=== PATIENT | female | born 1950 | race Caucasian/White ===

== ENCOUNTER 2022-07-15 10:21 | Outpatient (CLI) | payer MEDICARE, OTHER ==
[2022-07-15 12:40] VITALS: BP 126/70
--- NOTE | 2022-07-15 12:40 | SLEEP CARE CONSULTATION ---
Information from patient questionnaire entered by Júnior Martínez. I have reviewed and concur with the information entered by Júnior Martínez. This document represents the service I personally performed and the decisions made by me, Kelly Eugene MD, [facility]. History of Present Illness Service Date and Time: 07/15/2022 1021 Reason for Visit: New patient Chief Complaint: reports: Other (UPDATE SUPPLIES) Usual bedtime: 8PM Time it takes to fall asleep: 5MIN Snores at night: No Observed to quit breathing while asleep: No Sleeps alone due to snoring: No Number of times waking at night: 3-4 Reasons for waking at night: reports: Other (UNKNOWN) Toss, Turn, or Twitch while sleeping: No Recalls having dreams: Yes Usually gets out of bed at: 630AM Feels refreshed in the morning: No Morning headache: No Sleepy or fatigued during the day: Yes Ever fallen asleep while driving: Yes Takes day naps: No Dreams during day naps: No Prior sleep studies: Yes Year and Where: [facility] Additional HPI information: I had the pleasure of seeing Mrs. Baez along with her Josue today regarding obstructive sleep apnea-hypopnea. As you know, she is a 71-year-old lady who was diagnosed with the sleep-disordered breathing at the [facility] about 15 years ago. The sleep study report is not available. She recalls the AHI to be around 90. She has been on the CPAP therapy since. After the [facility] closed, she went to [facility] in [place], which also closed recently. She has recently acquired a ResMed AirSense 11 from [employer]. She wears nasal pillows. He device is set at 5 15 cmH2O. She uses every night and all night. The compliance data show usage in 30 out of the past 30 nights, averaging 11.3 hours a night. The residual AHI is 2.9 and average air leak is 2.4 L/minute. She finds the treatment very beneficial. - Parasomnia Symptoms Ever been unable to move upon waking from sleep: No Walks in sleep: No Talks in sleep: No Ever acted out dreams in sleep: No Ever felt weak in the knees when startled or emotional: No Bothered by creepy, crawly, restless sensations in legs: No Problems with memory or concentration: Yes Subjective Initial [place] Sleepiness Scale score: 5 (07/06/22) Past Medical History Past Medical History: reports: Claustrophobia, Arthritis, Asthma, Other (MULTIPLE MYELOMA, PINCH NERVE ) Social History The patient's occupation is a RE. Patient is and lives in [place]. Have you smoked in the past 12 months: No Alcohol use: No Caffeine use: Yes Caffeine amount and frequency: 60OZ DAILY Family History Family history of sleep disordered breathing: No Allergies and Home Medications Known drug allergies: Yes (SEE ATTACHED) Drug allergies reviewed: Yes Home medication list reviewed: Yes Review of Systems Cardiovascular: reports: high blood pressure, irregular heart rate or pulse Respiratory: reports: shortness of breath Gastrointestinal: denies: heartburn, difficulty swallowing, nausea, vomitting, diarrhea, abdominal pain, other Urinary: reports: incontinence Neurological: reports: gait or balance problems Psychiatric: reports: claustrophobia Ear/Nose/Throat: denies: nasal congestion, sinus problems, nose bleeds, dry mouth/throat, hoarseness, injury to nose, tonsillectomy, wisdom teeth removed, other Endocrine: denies: thyroid disease, history of goiter, sluggishness, too hot or cold, excessive thirst, increased appetite, increased urination, unexplained weakness, other Musculoskeletal: reports: joint pain, back pain Immunologic: reports: sneezing, itching Physical Exam Vital signs obtained and entered by: JÚNIOR Hanna MA Blood Pressure: 126/70 (RIGHT ARM) Cuff size: long Heart Rate: 98 O2 Saturation: 60 Height: 5 ft 4 in Weight: 217 lb 3.2 oz Body Mass Index: 37.3 BMI Classification: Obese Neck circumference: 17.5 Mood/affect: normal HEENT: No craniofacial malformation Nostrils: patent to airflow Turbinates: normal Septum: midline Mouth and throat: narrow oropharynx Soft palate: long Hard palate: normal Uvula visualization: 25% Mallampati Class III Tongue: normal in size Tonsils: small Chin and jaw: normal size and position Neck: normal w/o lymphadenopathy or thyromegaly Heart: regular rate and rhythm Lungs: clear bilaterally Extremities: no edema or clubbing Neurologic: intact Impression and Plan IMPRESSION: 1. Obstructive Sleep Apnea-Hypopnea Syndrome, as previously diagnosed. The severity is unknown. The patient has excellent treatment compliance. The current pressure setting appears effective and comfortable. Narrow oropharynx and obesity are common predisposing factors for obstructive sleep apnea-hypopnea syndrome. No adjustment is necessary today. The patient does need a new prescription for CPAP supplies. In order to issue her a prescription, I will need a new sleep study to document the sleep-related breathing disorder and its severity. Plan: 1. Schedule an in-laboratory polysomnography. 2. Continue with autoCPAP set at 5 15 cmH2O. 3. Try to lose weight. 4. Return for follow up after the sleep study. Counseling Topics: Weight control Plan: in-lab polysomnography Visit Type: In Office Time Spent with Patient (minutes): 15 Provider Statement: I spent 100% of the Face to Face Visit with the patient with greater than 50% spent counseling the patient and coordination of care.
== END 2022-07-15 10:22 | disposition home or self-care (01) ==
LOC: SC 10:21
PROVIDERS: ATTEND Internal Medicine Pulmonary Disease
DX: G47.33 Obstructive sleep apnea (adult) (pediatric) (principal); E66.9 Obesity, unspecified; Z68.37 Body mass index [BMI] 37.0-37.9, adult
CPT/HCPCS: 99202; G0463; 99212

== ENCOUNTER 2022-07-30 20:48 | Outpatient (CLI) | payer MEDICARE, OTHER | END 2022-07-30 20:49 | disposition home or self-care (01) | LOC: SC 20:48 | PROVIDERS: ATTEND Internal Medicine Pulmonary Disease | DX: G47.33 Obstructive sleep apnea (adult) (pediatric) (principal) | CPT/HCPCS: 95810 ==

== ENCOUNTER 2022-08-30 10:00 | Outpatient (CLI) | payer MEDICARE, OTHER ==
--- NOTE | 2022-08-30 10:53 | Sleep Patient Instructions ---
Sleep Center Visit Summary - Patient Visit Information Reason for Visit: Sleep study follow up with patient who is currently on a CPAP - Patient Instructions Additional Instructions: You will be continued on CPAP therapy with pressure setting at 5-15 cmH2O. You may call the office with any concerns about pressure feeling too low or too much for adjustment, if needed. A prescription will be sent to [facility] for your supplies. You should contact DME suppliers for any questions or concerns about mask or equipment. Please follow up in the sleep care office in 1 year. - Clinic Information Contact: [facility] [address] [place] [address] [email or web address] T: [phone]
--- NOTE | 2022-08-30 10:55 | SLEEP CARE CONSULTATION ---
Information from patient questionnaire entered by Gabriela Martínez. I have reviewed and concur with the information entered by Gabriela Martínez. This document represents the service I personally performed and the decisions made by , Malini He ARNP. History of Present Illness Service Date and Time: 08/30/2022 1000 Initial [place] Sleepiness Scale score: 5 (07/06/22) Current [place] Sleepiness Scale score: 4 (08/30/22) Additional HPI information: DEBBI OLIVER returns for follow up and results of the recently performed polysomnography. Her sleep study showed severe obstructive sleep apnea with an AHI of 44.7. She wishes to continue with nasal autoCPAP set at 5-15 cmH20. Patient does not drink alcohol. Patient was cautioned about risks of drowsy driving until sleepiness symptoms resolve. Sleep Study - Results Type of Sleep Study: Polysomnography (COMPLETED 07/30/22) Prior sleep studies: Yes Year and Where: [facility] Sleep Study results: IMPRESSION: The quality of the study is good. The patient had reduced sleep efficiency due to sleep onset insomnia and a prolonged awakening in the second half of the study. The sleep architecture was abnormal for sleep fragmentation and lack of REM and slow wave sleep (N3). Respiratory monitoring showed severe obstructive sleep apnea-hypopnea (AHI = 44.7) associated with frequent arousals, oxyhemoglobin desaturation and mild hypoxia (jose oxygen saturation of 87%). The patient only slept supine during this study (supine AHI = 44.7; non-supine = 0.00). Snore was moderate to loud in intensity. There was no significant periodic leg movement of sleep. Cardiac rhythm was normal sinus rhythm without significant arrhythmia. No abnormal behavior (parasomnia) observed during the night. Allergies and Home Medications Known drug allergies: No Drug allergies reviewed: Yes Home medication list reviewed: Yes (no changes) Allergy and home medication list: Allergies No Known Drug Allergies Allergy (Verified 08/29/22 11:01) Review of Systems Review of systems same as previous: Yes (no changes) Physical Exam Vital signs obtained and entered by: GABRIELA Hanna MA Blood Pressure: 102/58 (RIGHT ARM) Cuff size: long Heart Rate: 56 O2 Saturation: 97 Height: 5 ft 4 in Weight: 212 lb Body Mass Index: 36.3 BMI Classification: Obese Impression and Plan 1. Obstructive Sleep Apnea-Hypopnea Syndrome, severe, with lowest oxygen saturation of 87%. Patient returns to office after completing verifying sleep study. The patient will be continued on nasal autoCPAP therapy with pressure set at 5-15 cmH2O. Patient's apnea severity and rationale for treatment to reduce apnea, improve sleep quality and reduce cardiovascular and cerebrovascular events was reviewed. I also reviewed the benefit of consistent device use of CPAP for asthma. 2. Obesity, unspecified. Currently patients BMI is 36.3. Obesity increases the risk of apnea, CPAP pressure requirements and overall health risks especially cardiovascular and diabetes. Thus patient is advised to lose weight. * Continue auto CPAP pressure at 5-15 cmH2O * Update supplies * Notify me if snoring with mask or feeling that the pressure is too much or too little * Attempt to lose weight * Call this office if any problems using CPAP * Return for follow up in 1 year, or sooner if concerns arise Counseling Topics: Spare mask, Weight loss health impact Visit Type: In Office Time Spent with Patient (minutes): 20 Provider Statement: I spent 100% of the Face to Face Visit with the patient with greater than 50% spent counseling the patient and coordination of care.
[2022-08-30 10:57] VITALS: BP 102/58
== END 2022-08-30 10:01 | disposition home or self-care (01) ==
LOC: SC 10:00
PROVIDERS: ATTEND Nurse Practitioner Family
DX: G47.33 Obstructive sleep apnea (adult) (pediatric) (principal); E66.9 Obesity, unspecified; Z68.36 Body mass index [BMI] 36.0-36.9, adult
CPT/HCPCS: 99213; G0463; 99212

== ENCOUNTER 2023-09-02 09:38 | Outpatient (CLI) | payer MEDICARE, OTHER ==
--- NOTE | 2023-09-02 10:21 | Sleep Patient Instructions ---
Sleep Center Visit Summary - Patient Visit Information Reason for Visit: Annual followup - Patient Instructions Additional Instructions: You will continue with CPAP therapy with pressure set at 5-15 cmH2O. A supply prescription will be updated with your DME. We encourage you to continue to try to lose weight. Please follow up with the sleep care office in 1 year. - Clinic Information Contact: [facility] [address] [place] [address] [email or web address] T: [phone]
--- NOTE | 2023-09-02 10:23 | SLEEP CARE CONSULTATION ---
Information from patient questionnaire entered by Gabriela Martínez. I have reviewed and concur with the information entered by Gabriela Martínez. This document represents the service I personally performed and the decisions made by , Malini He ARNP. History of Present Illness Service Date and Time: 09/02/2023 09 Previous diagnosis: Severe, Obstructive Sleep Apnea-Hypopnea Syndrome AHI: 44.7 (07/30/22) Reason for follow up: annual (LAST SEEN 08/2022) Equipment type: CPAP ([employer] Airsense 11, 01/08/2021) Equipment obtained from: Other ([facility], getting supplies) Mask style: Nasal Backup mask available: Yes Last cushion change: 1 month Prior sleep studies: Yes Year and Where: [facility] Type of Sleep Study: Polysomnography (COMPLETED 07/30/22) HPI additional information: DEBBI OLIVER was diagnosed to have severe, AHI 44.7, obstructive sleep apnea- hypopnea syndrome and returned today for CPAP therapy annual follow-up. Sleep Study - Results Type of Sleep Study: Polysomnography (COMPLETED 07/30/22) Prior sleep studies: Yes Year and Where: [facility] CPAP Compliance Data - Data Reviewed with Patient Average duration of nightly device use: 11 HRS 28 MINS Compliance rate %: 100 (08/28/22-08/27/23; 365/365 days used) Current pressure setting (cmH2O): 5-15 Average residual AHI: 1.9 Central apnea: 0.9 Obstructive apnea: 0.7 Hypopnea: 0.2 Average large leak: 3.2 L/min Subjective Patient concerns: denies: aerophagia, mask discomfort, air blowing in eyes, mask leak noise, condensation in mask/hose, nasal congestion, dry mouth, nose, throat, epistaxis Observed to snore while using device: No Current pressure setting perceived as: comfortable On therapy, patient: reports: sleeping better, awakening more refreshed, being more awake and alert during the day, more rested overall. denies: drowsiness while driving Initial [place] Sleepiness Scale score: 5 (07/06/22) Current [place] Sleepiness Scale score: 3 (09/02/23) Allergies and Home Medications Known drug allergies: No Drug allergies reviewed: Yes Home medication list reviewed: Yes (potassium) Allergy and home medication list: Allergies No Known Drug Allergies Allergy (Verified 08/28/23 11:14) Review of Systems Review of systems same as previous: Yes (NO CHANGE) Physical Exam Vital signs obtained and entered by: GABRIELA Hanna MA Blood Pressure: 137/76 (RIGHT ARM) Cuff size: long Heart Rate: 74 O2 Saturation: 95 Height: 5 ft 4 in Weight: 197 lb 9.6 oz Weight change since last visit: 15 lb loss Body Mass Index: 33.9 BMI Classification: Obese Impression and Plan 1. Obstructive Sleep Apnea-Hypopnea Syndrome, severe, with good treatment compliance and good apnea control. On CPAP therapy, the patient has better sleep quality and is more rested overall. Patient has significant improvement of their sleep apnea and is satisfied with current CPAP therapy. Patient denies problems with oral dryness, nasal congestion, epistaxis, skin irritation or aerophagia. Patient's apnea severity and rationale for treatment to reduce apnea, improve sleep quality and reduce cardiovascular and cerebrovascular events was reviewed. I also reviewed the benefit of consistent device use of CPAP for asthma. 2. Obesity, unspecified. Currently patients BMI is 33.9. She has lost weight. She says she eats less because her cancer medications affect her taste. Obesity increases the risk of apnea, CPAP pressure requirements and overall health risks especially cardiovascular and diabetes. Thus patient is advised to continue to try to lose weight. * Continue auto CPAP pressure at 5-15 cmH2O * Update supply prescription * Notify me if snoring with mask or feeling that the pressure is too much or too little * Attempt to lose weight * Call this office if any problems using CPAP * Return for follow up in 12 months, or sooner if concerns arise Counseling Topics: Weight loss health impact Visit Type: In Office Time Spent with Patient (minutes): 20 Provider Statement: I spent 100% of the Face to Face Visit with the patient with greater than 50% spent counseling the patient and coordination of care.
[2023-09-02 10:30] VITALS: BP 137/76; O2SAT 95
== END 2023-09-02 09:39 | disposition home or self-care (01) ==
LOC: SC 09:38
PROVIDERS: ATTEND Nurse Practitioner Family
DX: G47.33 Obstructive sleep apnea (adult) (pediatric) (principal); E66.9 Obesity, unspecified; Z68.33 Body mass index [BMI] 33.0-33.9, adult
CPT/HCPCS: 99213; G0463; 99212